=== PATIENT | female | born 1935 | race Caucasian/White ===

== ENCOUNTER 2022-08-21 09:03 | Day surgery (SDC) | payer OTHER, MEDICARE ==
[2022-08-09 11:13] VITALS: BMI 25.7
[2022-08-21] MEDS ORDERED: CELECOXIB 200 MG CAPSULE PO ONE (09:21)
[2022-08-21] MEDS ORDERED: CELECOXIB 200 MG CAPSULE ONE (09:22)
[2022-08-21] MEDS ORDERED: CEFAZOLIN 2 GM in DEXTROSE 5%-WATER - 50 ML IVPB ONE (09:30)
[2022-08-21] MEDS ORDERED: TRANEXAMIC ACID 1000 MG/10 ML VIAL IVPUSH ONE (09:30)
[2022-08-21] MEDS ORDERED: ceFAZolin SODIUM 1 GM VIAL ONE ×2 (10:11→10:36)
[2022-08-21] MEDS ORDERED: VANCOMYCIN 1,000 MG VIAL (RESTRICTED TO ID ONLY) ONE ×2 (10:11→12:23)
[2022-08-21] MEDS ORDERED: MIDAZOLAM HCL 2 MG/2 ML SINGLE DOSE VIAL ONE (10:15)
[2022-08-21] MEDS ORDERED: BUPIVACAINE LIPOSOME/PF (EXPAREL) 266 MG/20 ML VIAL ONE (10:15)
[2022-08-21] MEDS ORDERED: BUPIVACAINE HCL/PF 0.5% (5MG/ML) 10 ML VIAL ONE (10:15)
[2022-08-21] MEDS ORDERED: DEXAMETHASONE SOD PHOSPHATE 4 MG/1 ML VIAL ONE (10:36)
[2022-08-21] MEDS ORDERED: ONDANSETRON 4 MG/2 ML VIAL ONE (10:36)
[2022-08-21] MEDS ORDERED: TRANEXAMIC ACID 1000 MG/10 ML VIAL ONE (10:36)
[2022-08-21] MEDS ORDERED: PROPOFOL 20 ML ONE (11:02)
[2022-08-21] MEDS ORDERED: ONDANSETRON 4 MG/2 ML VIAL IVPUSH PRN (12:56)
[2022-08-21] MEDS ORDERED: LACTATED RINGERS SOLUTION 1,000 ML IV SCH (13:00)
[2022-08-21] MEDS ORDERED: oxyCODONE HCL 5 MG TABLET PO PRN (13:12)
[2022-08-21] MEDS ORDERED: ACETAMINOPHEN INJECTION 100 ML IVPB ONE (13:27)
[2022-08-21] MEDS ORDERED: KETOROLAC TROMETHAMINE 30 MG/1 ML VIAL ONE (13:27)
[2022-08-21] MEDS: ACETAMINOPHEN 1000 MG/100 ML BAG IVPB ONE ×2 (13:29→17:22)
[2022-08-21] MEDS: KETOROLAC TROMETHAMINE 30 MG/1 ML VIAL IVPUSH SCH ×2 (13:48→19:19)
[2022-08-21] MEDS: oxyCODONE HCL 5 MG TABLET PO PRN (17:19)
[2022-08-21] MEDS: ACETAMINOPHEN 500 MG TABLET (FP) PO SCH (19:19)
[2022-08-21] MEDS: CEFAZOLIN 2 GM in DEXTROSE 5%-WATER - 50 ML IVPB SCH (20:35)
[2022-08-21] MEDS: SENNOSIDES/DOCUSATE COMBO (SENNA PLUS) TABLET (UD) PO SCH (21:26)
[2022-08-21] MEDS: oxyCODONE HCL 10 MG SUSTAINED ACTING TABLET PO SCH (21:26)
[2022-08-21] MEDS ORDERED: ATORVASTATIN CA 20 MG TABLET (FP) PO SCH (22:00)
[2022-08-22] MEDS: ACETAMINOPHEN 500 MG TABLET (FP) PO SCH ×3 (01:48→12:58)
[2022-08-22 01:55] VITALS: RESP 17
[2022-08-22] MEDS: CEFAZOLIN 2 GM in DEXTROSE 5%-WATER - 50 ML IVPB SCH (04:04)
[2022-08-22] MEDS ORDERED: metFORMIN HCL 500 MG TABLET (FP) PO SCH ×2 (07:00→10:00)
[2022-08-22] MEDS ORDERED: ASPIRIN 325 MG TABLET PO SCH (08:00)
[2022-08-22 08:43] LABS: HEMATOCRIT 26.3 % (32.4-45.2); HEMOGLOBIN 8.5 G/dL (10.7-15.3); MCH 28.3 pg (25.7-33.7); MCHC 32.5 g/dl (32.0-36.0); MEAN CELL VOLUME 87.2 fl (80-96); MEAN PLT VOLUME 8.6 fl (7.5-11.1); PLATELET COUNT 272.1 10^3/uL (134-434); RBC 3.02 10^6/uL (3.60-5.2); RDW 15.5 % (11.6-15.6); WHITE BLOOD COUNT 7.3 10^3/uL (4.0-10.8)
[2022-08-22] MEDS: SENNOSIDES/DOCUSATE COMBO (SENNA PLUS) TABLET (UD) PO SCH (09:10)
[2022-08-22] MEDS: oxyCODONE HCL 10 MG SUSTAINED ACTING TABLET PO SCH (09:11)
[2022-08-22] MEDS ORDERED: PANTOPRAZOLE 40 MG TABLET PO SCH (10:00)
[2022-08-22] MEDS ORDERED: PIOGLITAZONE HCL 15 MG TABLET PO SCH ×2 (10:00)
[2022-08-22] MEDS ORDERED: MULTIVITAMINS (DAILY MVI) TABLET (FP) PO SCH (10:00)
[2022-08-22] MEDS ORDERED: ENALAPRIL MALEATE 5 MG TABLET PO SCH (10:00)
[2022-08-22] MEDS: oxyCODONE HCL 5 MG TABLET PO PRN (12:58)
[2022-08-22 13:00] VITALS: BP 117/44; PULSE 84; TEMP 98.1
== END 2022-08-22 15:10 | disposition home health service (06) ==
LOC: FASUSAT 09:03 → FM/S 15:20 → FASUSAT 08-22 15:10
PROVIDERS: ATTEND Orthopaedic Surgery
PROC: 8E0Y0CZ Robotic Assisted Procedure of Lower Extremity, Open Approach (ICD-10-PCS; 2022-08-21)
PROC: 0SRC0J9 Replacement of Right Knee Joint with Synthetic Substitute, Cemented, Open Approach (ICD-10-PCS; principal; 2022-08-21 11:15)
DX: M17.11 Unilateral primary osteoarthritis, right knee (principal); M65.861 Other synovitis and tenosynovitis, right lower leg; I10 Essential (primary) hypertension; E11.9 Type 2 diabetes mellitus without complications; Z79.84 Long term (current) use of oral hypoglycemic drugs
CPT/HCPCS: 20985; 27447; C1776; S2900; 36415; 73560-TC-RT-FY; 82962; 85027; 88305-TC; 88311-TC; 88313-TC; 94760; 97010-GP; 97116-GP; 97162-GP; C1713; C1889